=== PATIENT | female | born 1950 | race Caucasian/White ===

== ENCOUNTER 2016-08-28 16:54 | Emergency (ER) | payer BC ==
--- NOTE | 2016-08-28 17:07 | PDOC ---
History of Present Illness - General History Source: Patient Exam Limitations: No Limitations - History of Present Illness Initial Comments: 08/28/16 17:24 The patient is a 66 year old female, with a significant past medical history of sciatica, migraines, high cholesterol, and borderline HTN, who presents to the emergency department with right sided back pain since saturday. The patient reports having right sided back pain that often radiates down into her right foot that has been constant since Saturday. She reports taking Aleve with no significant alleviation of her pain. She denies any urinary incontinence. She denies any numbness/tingling in her bilateral LE. She denies any weight loss. She denies any history of trauma or history. She denies recent fevers, chills, headache or dizziness. She denies recent dysuria, frequency, urgency or hematuria. Allergies: See Nursing Notes Past surgical history: Arthroscopy Social history: Nonsmoker. [place] EtOH use and denies recreational drug use. Primary Care Physician: None at this time. <Mason Hunter - Last Filed: 08/28/16 17:33> <Tomasz Helton - Last Filed: 08/28/16 17:49> - General Chief Complaint: Back Pain Stated Complaint: rt side back pain Time Seen by Provider: 08/28/16 16:57 Past History <Mason Hunter - Last Filed: 08/28/16 17:33> - Past Medical History Anemia: No Asthma: No Cancer: No Cardiac Disorders: No CVA: No COPD: No CHF: No Dementia: No Diabetes: No GI Disorders: No Disorders: No HTN: Yes (2008) Hypercholesterolemia: Yes (2000) Liver Disease: No Seizures: No Thyroid Disease: No - Surgical History Abdominal Surgery: No Appendectomy: No Cardiac Surgery: No Cholecystectomy: No Lung Surgery: No Neurologic Surgery: No Orthopedic Surgery: No - Psycho/Social/Smoking Cessation Hx Smoking History: Never smoked Have you smoked in the past 12 months: No Hx Alcohol Use: Yes (SOCIALLY) Drug/Substance Use Hx: No Substance Use Type: Alcohol <Tomasz Helton - Last Filed: 08/28/16 17:49> - Past Medical History Allergies/Adverse Reactions: Allergies Allergy/AdvReac Type Severity Reaction Status Date / Time erythromycin base Allergy Unknown Verified 08/28/16 17:09 [Erythromycin Base] iodine AdvReac Intermediate Rash Verified 08/28/16 17:09 Home Medications: Ambulatory Orders Atorvastatin Ca [Lipitor] 20 mg PO HS 08/21/12 Hydrochlorothiazide [Hctz] 12.5 mg PO HS 08/21/12 Losartan Potassium [Cozaar -] 50 mg PO HS 08/21/12 Sumatriptan Succinate [Imitrex -] 25 mg PO PRN PRN 08/21/12 Nabumetone [Relafen -] 500 mg PO TID PRN #30 tablet 08/28/16 Naproxen Sodium [Aleve] 220 mg PO PRN PRN 08/28/16 Oxycodone HCl/Acetaminophen [Percocet 5-325 mg Tablet] 1 tab PO Q4H PRN #14 tablet MDD 6 08/28/16 Review of Systems - Review of Systems Able to Perform ROS?: Yes Comments:: 08/28/16 17:23 CONSTITUTIONAL: Absent: Fever, Chills, Diaphoresis, Generalized Weakness, Malaise, Loss of Appetite HEENT: Absent: Rhinorrhea, Nasal Congestion, Throat Pain, Throat Swelling, Difficulty Swallowing, Mouth Swelling, Ear Pain, Eye Pain, Visual Changes CARDIOVASCULAR: Absent: Chest Pain, Syncope, Palpitations, Irregular Heart Rate, Lightheadedness , Peripheral Edema RESPIRATORY: Absent: Cough, Shortness of Breath, SOB with Exertion, Orthopnea, Wheezing, Stridor, Hemoptysis GASTROINTESTINAL: Absent: Abdominal pain, Abdominal Distension, Nausea, Vomiting, Diarrhea, Constipation, Melena, Hematochezia GENITOURINARY: Absent: Dysuria, Frequency, Urgency, Hesitancy, Flank Pain, Genital Pain MUSCULOSKELETAL: +Right sided back pain. Absent: Myalgia, Arthralgia, Joint Swelling, Neck Pain SKIN: Absent: Rash, Itching, PalloR HEMEATOLOGIC/IMMUNOLOGIC: Absent: Easy Bleeding, Easy Bruising, Lymphadenopathy, Frequent infections ENDOCRINE: Absent: Unexplained Weight Gain, Unexplained Weight Loss, Heat Intolerance, Cold Intolerance NEUROLOGIC: Absent: Headache, Focal Weakness, Paresthesias, Vertigo, Lightheadedness, Unsteady Gait, Seizure, Mental Status Changes, Incontinence PSYCHIATRIC: Absent: Anxiety, Depression <Mason Hunter - Last Filed: 08/28/16 17:33> *Physical Exam - Physical Exam Comments: 08/28/16 17:33 GENERAL: The patient is awake, alert, and fully oriented, in no acute distress. HEAD: Normal with no signs of trauma. EYES: Pupils equal, round and reactive to light, extraocular movements intact, sclera anicteric, conjunctiva clear. ENT: Ears normal, nares patent, oropharynx clear without exudates. Moist mucous membranes. NECK: Normal range of motion, supple without lymphadenopathy, JVD, or masses. LUNGS: Breath sounds equal, clear to auscultation bilaterally. No wheezes, and no crackles. HEART: Regular rate and rhythm, normal S1 and S2 without murmur, rub or gallop. ABDOMEN: Soft, nontender, normoactive bowel sounds. No guarding, no rebound. No masses. BACK: Minimal tenderness at right sciatic notch. EXTREMITIES: Normal range of motion, no edema. No clubbing or cyanosis. No cords , erythema, or tenderness. NEUROLOGICAL: Cranial nerves II through XII grossly intact. Normal speech, normal gait.Motor strength full both LE. Able to Heel and toe walk. Sensation intact throughout. PSYCH: Normal mood, normal affect. SKIN: Warm, Dry, normal turgor, no rashes or lesions noted. <Mason Hunter - Last Filed: 08/28/16 17:33> Medical Decision Making - Medical Decision Making 08/28/16 17:41 66-year-old female presents complaining of right lower back pain in the sacroiliac region and the right sciatic region of the right buttock radiating down the right lateral leg all the way to the foot. The pain started 2 days ago. It's worse with movement. Normally when she gets up in the morning, that is the peak of the pain. She states she is taking naproxen without relief. There was no trauma. There is no been no fever. There is no weight loss. Patient has had sciatica in the past, but this is stronger this time. The last episode was 2 years ago. On examination, the patient appears to be in some distress. She gets comfortable in one position, but then when she moves the pain gets worse. There is no weakness in the legs. There is no loss of sensation. The patient is able to heel and toe walk with pain, but without weakness. She denies incontinence. Impression: Right-sided sciatica. No neurological deficits. I advised x-rays given the patient's age, but she declined. She states she has an appointment with her physician next week and will get x-rays at that time because she is unable to wait today. Pain medication prescriptions will be given. Patient advised to use warm heating pad to help relieve the pain. 08/28/16 17:44 The scribe's documentation has been prepared under my direction and personally reviewed by me in its entirety. I have confirmed that the note above accurately reflects all work, treatment, procedures, and medical decision- making performed by me. <Tomasz Helton - Last Filed: 08/28/16 17:49> *DC/Admit/Observation/Transfer - Attestations Scribe Attestion: 08/28/16 17:23 Documentation prepared by Mason Hunter, acting as medical photographer for Tomasz Helton MD. <Mason Hunter - Last Filed: 08/28/16 17:33> - Discharge Dispostion Admit: No <Tomasz Helton - Last Filed: 08/28/16 17:49> Diagnosis at time of Disposition: Right sided sciatica - Discharge Dispostion Disposition: HOME Condition at time of disposition: Stable - Prescriptions Prescriptions: Oxycodone HCl/Acetaminophen [Percocet 5-325 mg Tablet] 1 tab PO Q4H PRN #14 tablet MDD 6 PRN Reason: Pain Nabumetone [Relafen -] 500 mg PO TID PRN #30 tablet PRN Reason: low back pain - Referrals Referrals: Mason Burr MD [Staff Physician] - - Patient Instructions Printed Discharge Instructions: DI for Sciatica Additional Instructions: You were evaluated today for right-sided sciatica. Take the pain medication as prescribed, Relafen 3 times a day as needed for pain. You may take Percocet as well for severe pain, but this may cause drowsiness. Apply a warm heating pad as instructed to help relieve the pain. Follow-up with Dr. Mason Burr as scheduled. Return to the emergency department for any severe or progressive symptoms.
[2016-08-28 17:24] VITALS: BP 158/70; PULSE 74; TEMP 98.3; BMI 27.1
[2016-08-28] MEDS ORDERED: OXYCODONE/APAP 5/325MG COMBO TABLET PO ONE (17:32)
[2016-08-28] MEDS ORDERED: KETOROLAC TROMETHAMINE 30 MG/1 ML VIAL IM ONE (17:32)
[2016-08-28] MEDS ORDERED: OXYCODONE/APAP 5/325MG COMBO TABLET ONE (17:44)
[2016-08-28] MEDS ORDERED: KETOROLAC TROMETHAMINE 30 MG/1 ML VIAL ONE (17:45)
== END 2016-08-28 17:58 | disposition home or self-care (01) ==
LOC: FER 16:54
PROC: 3E0233Z Introduction of Anti-inflammatory into Muscle, Percutaneous Approach (ICD-10-PCS; principal; 2016-08-28)
DX: M54.31 Sciatica, right side (principal); I10 Essential (primary) hypertension; E78.00 Pure hypercholesterolemia, unspecified
CPT/HCPCS: 99283-25

== ENCOUNTER 2017-07-04 07:53 | Day surgery (SDC) | payer BC ==
[2017-07-03 10:18] VITALS: BMI 27.4
[2017-07-04] MEDS ORDERED: PROPOFOL 20 ML ONE ×2 (08:01)
[2017-07-04] MEDS ORDERED: LIDOCAINE HCL/PF 2% SDV 5ML VIAL ONE (08:03)
[2017-07-04 10:02] VITALS: BP 112/64; PULSE 64; TEMP 97.4
== END 2017-07-04 10:04 | disposition home or self-care (01) ==
LOC: FASU-ENDO 07:53
PROVIDERS: ATTEND Internal Medicine Gastroenterology
PROC: 0DJD8ZZ Inspection of Lower Intestinal Tract, Via Natural or Artificial Opening Endoscopic (ICD-10-PCS; principal; 2017-07-04 08:53)
DX: Z12.11 Encounter for screening for malignant neoplasm of colon (principal); K64.4 Residual hemorrhoidal skin tags